=== PATIENT | male | born 1995 | race Caucasian/White ===

== ENCOUNTER 2025-04-14 09:58 | Emergency (ER) | payer OTHER, SELFPAY ==
[2025-04-14 10:02] VITALS: BP 154/95
--- NOTE | 2025-04-14 11:27 | ED.GENMED ---
History of Present Illness
General
Chief Complaint: Dizziness
Source: patient
Exam Limitations: none
Time Seen by Provider: 04/14/25 10:43
Nursing documentation reviewed up to this point in time: agreed with
History of Present Illness
History of Present Illness:
Patient is a 30-year-old male who presents with a sensation of tingling in his bilateral upper and lower extremities for the past 3 weeks. He reports this is not a numbness this feels like ' the same sensation as a TENS unit.'
He denies any weakness. He has a family doctor appointment for this on Friday but wanted to be evaluated today because of the persistent sensation. He denies any double vision denies any upper or lower extremity weakness. Denies any headache.
Phy Exam
General Physical Exam
General Presentation: no apparent distress
General age: appears stated age
General Skin: warm and dry
General Habitus: normal
General Mental: alert
General Hydration: appears well hydrated
Eye Exam
Eye Exam: PERRL and EOMI
Eye Exam General: PERRL: bilateral and EOM intact: bilateral
Pupil Exam: Bilateral: round and reactive
Cardiovascular Exam
Cardiovascular Exam: regular rate/rhythm, no murmur and normal peripheral pulses
Pulmonary Exam
Pulmonary Exam: lungs clear and no respiratory distress
Neurological Exam
Neurological Exam: alert, oriented x3, no motor deficits, no sensory deficits and speech normal
Musculoskeletal Exam
Musculoskeletal Exam: full ROM
Skin Exam
Skin Exam: normal color and warm/dry
Psychiatric Exam
Psychiatric Exam: normal mood/affect
Sepsis
Sepsis Screening
Sepsis Assessment: Sepsis Ruled Out
Sepsis Screen
Sepsis Screen: Sepsis Ruled Out
Date: 04/14/25
Time: 14:02
Course
Orders/Labs/Results
Orders:
Orders
04/14/25 10:05
EKG [Electrocardiogram (*1)] Urgent
Reason for Study: Vertigo / Dizzy
EKG- Treatment ONCE
04/14/25 11:51
Complete Blood Count/With Diff Urgent
Comprehensive Metabolic Panel Urgent
Lyme Progressive Urgent
UA Reflex to Culture [Urinalysis Reflex To Culture] Urgent
Date Specimen was Collected: 04/14/25
Time Specimen was Collected: 11:39
Abnormal Lab Results
04/14/25
11:51
Carbon Dioxide 31 H mmol/L
(22-30)
04/14/25 11:51
04/14/25 11:51
Vital Signs
Initial and Last Documented VS:
Initial Vital Signs
Temp Pulse Resp BP Pulse Ox
98.2 F 75 16 154/95 99
04/14/25 10:02 04/14/25 10:02 04/14/25 10:02 04/14/25 10:02 04/14/25 10:02
Last Documented Vital Signs
Temp Pulse Resp BP Pulse Ox
98.2 F 78 18 132/86 98
04/14/25 10:02 04/14/25 13:00 04/14/25 13:00 04/14/25 13:00 04/14/25 13:00
MDM/Problems Addressed
Differential Diagnosis Includes:
Not limited to electrolyte abnormality other nonemergent considerations will include neurological issues such as MS
MDM/Problems Addressed:
Patient is a 30-year-old complains of tingling throughout upper and lower extremities for the past several weeks not associated with weakness. no headache. neuro exam is unremarkable here in the ER no actual joint pain. Patient mention that his
urine smelled strong and funny however denies any urinary frequency or urgency. His urinalysis is negative. He is in no acute distress. His labs are unremarkable including normal potassium and renal function. He questioned doing a Lyme test this
is reasonable with this was ordered however no acute cause of patient's symptoms here will need close outpatient follow-up I did review this with patient. Patient may need additional imaging including MRI discussed close outpatient with
Neurology. Will hold off on additional imaging here.
*Pulse Oximetry
SaO2: 99
Oxygen Mode of Delivery: Room air
Patient hypoxic: no
*Critical Care Note
Total Time (30-74mins, 75-104mins- exclusive of procedures): Not Applicable
ED Attending Note
-
Portions of this chart may have been created with voice recognition software.� Occasional wrong word or��sound alike� substitutions may have occurred due to the inherent limitations of voice recognition software.
Discharge Plan
Departure
Patient Disposition: Home (Routine Discharge)
Date of Disposition: 04/14/25
Time of Disposition: 13:08
Patient with high blood pressure during this ER visit?: Yes
Condition: Fair
Covid-19: Not Applicable
Discharge Problem:
paresthesias
Instructions: BLOOD PRESSURE
Referrals:
Tad Michaels MD [Active, Neurology]
Martell Jovel MD [Family Provider, Internal Medicine]
Activity Restrictions/Additional Instructions:
Please recommend that as discussed a follow-up with your family doctor in the next 2 days for reevaluation. It Is possible that you will need additional evaluation and imaging such as a possible MRI of the brain. Please follow-up with
neurology. Please call today to make an appointment as soon as possible.
return if any worsening of symptoms.
Interventions
Interventions:
*Risk Screen - Suicide Last Done: 04/14/25 10:02
*General Assessment Last Done: 04/14/25 11:56
*Neglect/Abuse Screening Last Done: 04/14/25 10:02
*ED COVID-19 Vaccine History Last Done: 04/14/25 11:43
*ED Influenza Vaccine History Last Done: 04/14/25 11:43
[facility] Risk Assessment Tool Last Done: 04/14/25 11:43
*Nursing Disposition Last Done: 04/14/25 13:26
ED- Neurological Assessment Last Done: 04/14/25 11:56
ED- Cardiac Assessment Last Done: 04/14/25 13:26
ED Swallowing Screen Last Done: 04/14/25 11:56
Discharge Date and Time
Discharge Date/Time: 04/14/25 13:27
Print Language: GEORGIAN
[2025-04-14 12:00] VITALS: BP 133/91
[2025-04-14 12:02] LABS: Hematocrit 44.5 % (39.0-52.0); Hemoglobin 15.1 g/dL (13.0-18.0); Mean Corp Hgb Conc. 33.9 g/dL (33.0-37.0); Mean Corpuscular Volume 82.0 fL (80.0-94.0); Nucleated Red Blood Cells % 0 % (-); Platelet Count 269 10^3/uL (130-400); Red Cell Dist. Width 12.8 % (11.5-14.5)
[2025-04-14 12:24] LABS: ALT (SGPT) 32 U/L (0-50); AST (SGOT) 25 U/L (17-59); Albumin 4.7 g/dl (3.5-5.0); Alkaline Phosphatase 52 U/L (38-126); Blood Urea Nitrogen 18 mg/dl (9-20); Calcium 9.7 mg/dl (8.4-10.2); Carbon Dioxide 31 mmol/L (22-30); Chloride 103 mmol/L (98-107); Glucose 97 mg/dl (70-99); Potassium 4.7 mmol/L (3.5-5.1); Sodium 137 mmol/L (135-145); Total Protein 7.4 g/dl (6.3-8.2); eGFR > 60.00
[2025-04-14 12:41] LABS: Urine Character Clear (Clear)
[2025-04-14 13:00] VITALS: BP 132/86
== END 2025-04-14 13:27 | disposition home or self-care (01) ==
LOC: EMR 09:58
PROVIDERS: Nurse Practitioner; EMERGENCY PHYSICIAN Student in an Organized Health Care Education/Training Program; FAMILY PHYSICIAN Internal Medicine
DX: R20.2 Paresthesia of skin (principal); R42 Dizziness and giddiness
CPT/HCPCS: 99284; 80053; 81003; 85025; 86618; 93005